=== PATIENT | female | born 1960 | race Asian ===

== ENCOUNTER 2019-05-19 12:50 | Emergency (ER) | payer MEDICAID, SELFPAY ==
[2019-05-19 12:58] VITALS: BP 149/85; PULSE 80; RESP 22; TEMP 36.4; O2SAT 97
[2019-05-19 13:42] LABS: Basophils Percent Auto 0.5 % (0.2-1.2); Eosinophils Absolute Auto 0.1 K/mm3 (0-0.3); Eosinophils Percent Auto 1.1 % (0-4.4); Hematocrit 40.5 % (37.0-47.0); Hemoglobin 13.2 g/dL (12.0-15.0); Immature Granulocyte Absolute 0.02 K/mm3 (0.00-0.031); Immature Granulocyte Percent A 0.3 % (0-0.5); Lymphocytes Absolute Auto 2.02 K/mm3 (0.9-3.2); Lymphocytes Percent Auto 31.5 % (18.3-44.2); Mean Corpuscular HGB Conc 32.6 g/dl (32-36); Mean Corpuscular Hemoglobin 28.3 pg (26-34); Mean Corpuscular Volume 86.9 fl (80-100); Mean Platelet Volume 9.4 fl (7.4-10.4); Monocytes Absolute Auto 0.5 K/mm3 (0.1-0.6); Neutrophils Absolute Auto 3.8 K/mm3 (1.3-6.7); Neutrophils Percent Auto 58.6 % (45.5-73.1); Platelet Count Result 226 k/mm3 (150-375); Red Blood Count 4.66 M/mm3 (4.2-5.4); Red Cell Distribution Width 13.8 % (11.5-14.5); White Blood Count 6.4 K/mm3 (4.5-10.0)
--- NOTE | 2019-05-19 13:43 | ED.NAVMDI ---
HPI - Nausea/Vomiting/Diarrhea General Chief complaint: Nausea/Vomiting/Diarrhea Stated complaint: N/V; dizziness Time Seen by Provider: 05/19/19 13:01 Source: weight calculator Mode of arrival: ambulatory Limitations: no limitations History of Present Illness HPI Narrative: A 58 y/o female pt presents to the ED, with c/o N/V and dizziness that began at 10AM this morning (3 hours ago). Scrap Drop Operator at bedside states pt is having dizziness/spinning sensation and N/V when lying supine. He states that the pt had a similar episode to this x 1 year ago. Per boat detailer, pt denies SANDY, tinnitus, or fever. Pt states that she now feels ok when lying supine, but upon sitting up she feels dizzy and nauseous. Scrap Drop Operator also notes pt having pain behind her ears bilaterally last night. MD elicited complaint: nausea and vomiting Onset (ago): hour(s) (3) Associated nausea: Yes Exacerbating factors: other (lying supine) Context: other (similar episode x 1 year ago) Associated symptoms: other (Dizziness/spinning sensation) Related Data Allergies Allergy/AdvReac Type Severity Reaction Status Date / Time No Known Allergies Allergy Unverified 11/04/17 13:42 Review of Systems Review of Systems: All systems reviewed & are unremarkable except as noted in HPI and below Constitutional: Constitutional: Denies fever(s) and Denies headache(s) ENT: Denies tinnitus and Reports other (pain behind ears bilaterally) Gastrointestinal: Gastrointestinal: Reports nausea and Reports vomiting Neurologic: Reports dizziness (spinning sensation) PMFSH Past Medical History Medical History (Updated 05/19/19 @ 16:00 by Mirza Reddy MD) Medical history unknown Surgical History Surgical History (Updated 05/19/19 @ 14:01 by Hailey [facility]) Surgical history unknown Social History Social History (Updated 05/19/19 @ 14:01 by Hailey Anage[facility]Valent[facility]) Smoking status: Never smoker Exam Const: General: healthy appearing, no acute distress and well developed Nutritional Appearance: well nourished Orientation/consciousness: patient oriented x3 (alert) and Other orientation findings (Alert) Limitations: no limitations HENMT: Head: normocephalic and atraumatic Ears: external ears normal General nose exam: No nasal discharge present and no epistaxis Face and sinus: face symmetric Mouth: Yes lip normal, Yes tongue normal and Yes moist mucous membranes Throat: other (No exudate, no erythema) Eyes: Conjunctivae: conjunctivae normal Sclera: sclerae normal Pupils: Equal, round and reactive pupils present EOM: EOMs intact bilaterally Neck: Neck: full ROM, no lymphadenopathy and supple Thyroid: thyroid normal Chest: Chest palpation & inspection: no tenderness Resp: Effort & Inspection: normal respiratory effort Auscultation: clear to auscultation bilaterally, no rales, no rhonchi, no wheezes and other (breath sounds equal) Cardio: Rate: regular rate Rhythm: regular rhythm Heart sounds: no gallops and no murmurs GI: Inspection: non-distended GI Palp: No abdominal tenderness and Yes Soft to palpation Auscultation: other (bowel sounds present) : General: Yes no CVA tenderness Back/Spine/Pelvis: Back: no CVA tenderness Thoracic/Lumbar Spine: thoracic and lumbar spine normal to inspection Skin: General skin exam: normal color and no rashes or lesions noted Neuro: General: patient oriented x3 (alert), moves all extremities and no focal motor deficits Cranial nerves: Yes Nystagmus not present and Yes facial symmetry Speech: normal speech Motor exam (neuro): Motor abnormalities not present Other: No inducible nystagmus with head tilt No vertigo with head tilt Extrem: General: normal to inspection, full ROM and no pedal edema Psych: Affect: normal affect Course Course Emergency Course: sx much better after meds Vital Signs Vital signs: Vital Signs Temperature 36.4 C L 05/19/19 12:58 Pulse Rate 80 05/19/19 12:58 Respiratory Rate
[2019-05-19 13:56] LABS: Alanine Aminotransferase 85 U/L (4-35); Albumin Level 4.6 g/dL (3.5-5.1); Alkaline Phosphatase 72 U/L (38-126); Aspartate Amino Transferase 67 U/L (14-36); Bilirubin,Total 0.4 mg/dL (0.2-1.3); Blood Urea Nitrogen 16 mg/dL (7-17); Calcium 9.2 mg/dL (8.4-10.2); Carbon Dioxide 24 mmol/L (22-30); Chloride 105 mmol/L (98-107); Estimated Glomerular Filt Rate > 60; Glucose 117 mg/dL (65-105); Lipase 86 U/L (23-300); Potassium 3.8 mmol/L (3.4-5.0); Sodium 137 mmol/L (137-145)
[2019-05-19] MEDS: LACTATED RINGERS 1,000 ML 250 ML IV CONT (14:28)
[2019-05-19] MEDS: PROCHLORPERAZINE EDISYLATE 10 MG/2 ML VIAL IV PUSH (14:28)
[2019-05-19] MEDS: MECLIZINE HCL 25 MG TABLET PO (14:28)
[2019-05-19 14:32] LABS: Add Urine Microscopic? YES; Appearance Urine Cloudy (Clear); Bilirubin Urine Negative (Negative); Blood Urine Negative (Negative); Color Urine Yellow (Yellow); Glucose Urine UA Negative (Negative); Ketones Urine Trace mg/dL (Negative); Leukocyte Esterase Ur Negative LEU/UL (Negative); Mucus Urine Heavy /lpf; Nitrate Urine Negative (Negative); Protein Urine 1+ mg/dL (Negative); Specific Grav Ur 1.023 (1.001-1.035); Squamous Epithelial Cell Urine Occasional /hpf (Few); Urobilinogen Urine Negative mg/dL (<2.0)
[2019-05-19 15:27] VITALS: BP 115/72; BP 137/85; PULSE 76; PULSE 78
[2019-05-19 15:29] VITALS: BP 131/82; PULSE 75
[2019-05-19 16:23] VITALS: BP 112/70; PULSE 80; RESP 20; TEMP 36.7; O2SAT 99
== END 2019-05-19 16:25 | disposition home or self-care (01) ==
PROVIDERS: Emergency Provider Emergency Medicine
DX: R42 Dizziness and giddiness (principal)
CPT/HCPCS: 36415; 80053; 81001; 83690; 85025; 96361; 96374; 99284; A9270; J0780; J7120

== ENCOUNTER 2023-08-15 11:31 | Outpatient (CLI) | payer BC, SELFPAY ==
[2023-08-15 13:31] LABS: Alanine Aminotransferase 18 U/L (6-35); Albumin Level 4.7 g/dL (3.5-5.1); Alkaline Phosphatase 63 U/L (38-126); Anion Gap 5 mmol/L (4-12); Aspartate Amino Transferase 55 U/L (14-36); Bilirubin,Total 0.6 mg/dL (0.2-1.3); Blood Urea Nitrogen 16 mg/dL (7-17); Calcium 9.4 mg/dL (8.4-10.2); Carbon Dioxide 28 mmol/L (22-30); Chloride 109 mmol/L (98-107); Cholesterol 180 mg/dL (0-200); Estimated Glomerular Filt Rate > 60; Glucose 99 mg/dL (65-110); HDL Direct 57 mg/dL; Potassium 4.2 mmol/L (3.4-5.0); Sodium 142 mmol/L (137-145); Triglycerides 107 mg/dL (<150)
[2023-08-15 13:42] LABS: LDL Cholesterol Direct 97 mg/dL
[2023-08-15 13:50] LABS: Hemoglobin A1C 5.7 % (<5.7)
== END 2023-08-15 11:32 | disposition home or self-care (01) ==
LOC: ANHGOSHLAB 11:33
PROVIDERS: PCP Emergency Medicine; Visit Provider Emergency Medicine
DX: R74.8 Abnormal levels of other serum enzymes (principal); E78.5 Hyperlipidemia, unspecified; R73.01 Impaired fasting glucose
CPT/HCPCS: 36415; 80053; 80061; 83036; 84443

== ENCOUNTER 2023-08-30 15:34 | Emergency (ER) | payer BC, SELFPAY ==
[2023-08-30] VITALS (11 sets, daily range): BP systolic 124–147; BP diastolic 71–90; PULSE 63–105; RESP 13–19; TEMP 36.2; O2SAT 95–99
--- NOTE | ~2023-08-30 | XR_ITS ---
EXAMINATION: XR chest 1V portable DATE: 08/30/2023 17:56 INDICATION: Dizziness TECHNIQUE: frontal view of the chest was obtained. COMPARISON: None FINDINGS: Mild linear discoid atelectasis at the lateral left lower lung zone. No other airspace opacities, pul monary edema, pleural effusion or pneumothorax. Heart size is normal. IMPRESSION: 1. Mild discoid atelectasis at the left lower lung zone. Reviewed, dictated and finalized at location A.
--- NOTE | 2023-08-30 17:25 | ECG_ITS ---
Test Date: 2023-08-30 17:35:04 Measurements Intervals [place] Rate: 65 P: 9 [place]: 189 QRS: 60 QRSD: 84 T: 37 QT: 433 QTc: 453 Interpretive Statements SINUS RHYTHM POSSIBLE RIGHT VENTRICULAR CONDUCTION DELAY [RSR (QR) IN V1/V2] POSSIBLE ANTERIOR MYOCARDIAL INFARCTION , OF INDETERMINATE AGE [30 ms Q WAVE IN V3/V4, OR R < 0.2 mV IN V4] ABNORMAL ECG No previous ECG available for comparison Electronically Signed On 08-31-2023 15:07:14 CDT by Russ Martins M.D.
--- NOTE | 2023-08-30 17:28 | ED.DIZZY ---
HPI - Dizziness General Chief Complaint: Dizziness Stated Complaint: vomiting, dizzy Time Seen by Provider: 08/30/23 17:07 History of Present Illness HPI Narrative: 63-year-old Gabonese speaking female presents with her [id number] bedside for dizziness, nausea and vomiting that started this morning. Patient's daughter and a translates and a cysto history. Offered a core measures abstractor, however patient and family declined. States the patient had rice and Gabonese squash for breakfast and then went to [employer]. While at [employer] she became dizzy and weak and when she got home she vomited. States she has had about 3-4 episodes of vomiting since the onset of symptoms at 9:00 a.m.. She states her symptoms are improved when she lays flat and is still and worse when she quickly knows her head, sits up and walks. She reports a history of a similar episode a few years ago and was prescribed a medication that helps. She denies chest pain or shortness of breath, headache, vision changes, focal numbness or weakness, abdominal pain, fever. She is reporting some intermittent dysuria for the past few days. Denies flank pain or hematuria. Related Data Home Medications Medication Instructions Recorded Confirmed fenofibrate nanocrystallized 145 145 mg PO DAILY 08/15/23 08/15/23 mg tablet Allergies Allergy/AdvReac Type Severity Reaction Status Date / Time No Known Allergies Allergy Verified 08/15/23 10:30 Review of Systems Review of Systems: CONSTITUTIONAL: Denies fever, chills, or sweats. EYES: Denies visual changes, redness, or discharge. ENT: Denies rhinorrhea, congestion, sore throat, or otalgia. CARDIOVASCULAR: Denies chest pain, palpitations, or edema. RESPIRATORY: Denies cough or dyspnea. GASTROINTESTINAL: Denies abdominal pain, nausea, vomiting, or diarrhea. GENITOURINARY: Denies dysuria or hematuria. SKIN: Denies rash or itching. MUSCULOSKELETAL: Denies back pain, joint pain, or myalgia. NEUROLOGIC: See HPI PSYCHIATRIC: Denies anxiety or depression. [facility] Past Medical History Medical History Medical history unknown Surgical History Surgical History Surgical history unknown Social History Social History Smoking status: Never smoker Exam Narrative: GENERAL: Well-appearing, well-nourished, and in no acute distress. HEAD: Normocephalic, atraumatic. EYES: PERRLA and EOMI. No nystagmus ENT: Nares clear, no rhinorrhea or epistaxis. Mucous membranes moist. Bilateral TMs are guerrero nonbulging with normal canals. NECK: Supple. CHEST: Clear to auscultation. No respiratory distress. HEART: Regular rate and rhythm. No murmur heard. Normal peripheral pulses. ABDOMEN: Soft, nontender, nondistended, normal active bowel sounds. No CVA tenderness. EXTREMITIES: Normal range of motion. No edema. SKIN: Warm, dry, no rash. NEURO: No focal deficits. Alert and oriented x3. Cranial nerves 2-12 intact. Strength 5/5 in BUE and BLE. Sensation intact throughout. Normal [id number] bilaterally. No pronator drift. Course Vital Signs Vital signs: Vital Signs Temperature 97.2 F L 08/30/23 15:44 Pulse Rate 73 08/30/23 15:44 Respiratory Rate 18 08/30/23 15:44 Blood Pressure 141/75 H 08/30/23 15:44 Pulse Oximetry 97 08/30/23 15:44 Oxygen Delivery Room Air 08/30/23 15:44 Temperature 97.2 F L 08/30/23 15:44 Pulse Rate 63 08/30/23 23:06 Respiratory Rate 14 08/30/23 23:06 Blood Pressure 146/73 H 08/30/23 23:06 Pulse Oximetry 98 08/30/23 23:06 Oxygen Delivery Room Air 08/30/23 15:44 MDM - Dizziness MDM Narrative Medical decision making narrative: 63-year-old female with history of vertigo presents to the emergency department for dizziness, nausea and vomiting that started this morning. Worse with mo
[2023-08-30] MEDS: SODIUM CHLORIDE 0.9% IV 1,000 ML 999 ML IV CONT (17:45)
[2023-08-30] MEDS: ONDANSETRON INJ 4 MG/2 ML VIAL IV PUSH (17:47)
[2023-08-30] MEDS: MECLIZINE HCL 25 MG TABLET PO ×2 (17:48→22:06)
[2023-08-30 17:56] LABS: Basophils Percent Auto 0.2 % (0.2-1.2); Eosinophils Percent Auto 0.1 % (0-4.4); Hematocrit 37.6 % (37.0-47.0); Hemoglobin 12.6 g/dL (12.0-15.0); Immature Granulocyte Absolute 0.03 K/mm3 (0.00-0.031); Immature Granulocyte Percent A 0.4 % (0-0.5); Lymphocytes Absolute Auto 1.11 K/mm3 (0.9-3.2); Lymphocytes Percent Auto 13.1 % (18.3-44.2); Mean Corpuscular HGB Conc 33.5 g/dl (32-36); Mean Corpuscular Hemoglobin 29.4 pg (26-34); Mean Corpuscular Volume 87.9 fl (80-100); Mean Platelet Volume 8.8 fl (7.4-10.4); Monocytes Absolute Auto 0.2 K/mm3 (0.1-0.6); Monocytes Percent Auto 2.4 % (2.6-8.5); Neutrophils Absolute Auto 7.1 K/mm3 (1.3-6.7); Neutrophils Percent Auto 83.8 % (45.5-73.1); Platelet Count Result 273 k/mm3 (150-375); Red Blood Count 4.28 M/mm3 (4.2-5.4); Red Cell Distribution Width 12.8 % (11.5-14.5); White Blood Count 8.5 K/mm3 (4.5-10.0)
[2023-08-30 18:07] LABS: Alanine Aminotransferase 25 U/L (6-35); Albumin Level 4.7 g/dL (3.5-5.1); Alkaline Phosphatase 84 U/L (38-126); Anion Gap 9 mmol/L (4-12); Aspartate Amino Transferase 26 U/L (14-36); Bilirubin,Total 0.6 mg/dL (0.2-1.3); Blood Urea Nitrogen 11 mg/dL (7-17); Calcium 9.4 mg/dL (8.4-10.2); Carbon Dioxide 25 mmol/L (22-30); Chloride 108 mmol/L (98-107); Estimated CRCL calculation 75 ml/min; Estimated Glomerular Filt Rate > 60; Glucose 112 mg/dL (65-110); Potassium 3.8 mmol/L (3.4-5.0); Sodium 142 mmol/L (137-145)
[2023-08-30 18:19] LABS: Troponin I < 0.012 ng/mL (0.000-0.034)
[2023-08-30 19:01] LABS: Appearance Urine Clear (Clear); Bilirubin Urine Negative (Negative); Blood Urine Negative (Negative); Color Urine Yellow (Yellow); Glucose Urine UA Negative (Negative); Ketones Urine Trace mg/dL (Negative); Leukocyte Esterase Ur Negative LEU/UL (Negative); Nitrate Urine Negative (Negative); Protein Urine Negative (Negative); Specific Grav Ur 1.011 (1.001-1.035); Urobilinogen Urine 0.2 mg/dL (<2.0); pH Urine 7.5 (5.0-9.0)
[2023-08-30 19:07] LABS: Add Urine Microscopic? NO
[2023-08-30] MEDS: SCOPOLAMINE 1 MG PATCH 1 PATCH TRANSDERM (20:07)
[2023-08-30] MEDS: diazePAM INJ (*CRX) 10 MG/2 ML SYRINGE 5 MG IV PUSH (20:07)
[2023-08-30] MEDS: PROCHLORPERAZINE EDISYLATE 10 MG/2 ML VIAL IV PUSH (22:06)
[2023-08-31 00:20] VITALS: BP 135/73; PULSE 71; RESP 14; O2SAT 100
== END 2023-08-31 00:22 | disposition home or self-care (01) ==
PROVIDERS: Emergency Provider Physician Assistant; PCP Emergency Medicine
DX: H81.10 Benign paroxysmal vertigo, unspecified ear (principal); R94.31 Abnormal electrocardiogram [ECG] [EKG]
CPT/HCPCS: 36415; 71045; 80053; 81003; 84484; 85025; 93005; 96361; 96374; 96375; 99284; A9270; J0780; J2405; J3360; J7030

== ENCOUNTER 2025-01-29 17:16 | Emergency (ER) | payer OTHER, MEDICARE, SELFPAY ==
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
--- NOTE | 2025-01-29 17:22 | ECG_ITS ---
Test Date: 2025-01-29 17:32:35 Measurements Intervals [place] Rate: 88 P: 52 [place]: 174 QRS: -10 QRSD: 74 T: 18 QT: 348 QTc: 423 Interpretive Statements SINUS RHYTHM POSSIBLE RIGHT VENTRICULAR CONDUCTION DELAY ANTERIOR MYOCARDIAL INFARCTION , PROBABLY OLD PROBABLE INFERIOR MYOCARDIAL INFARCTION , PROBABLY OLD Electronically Signed On 01-29-2025 21:42:30 ADVERTISING AGENT by Felipe Wheeler D.O
[2025-01-29 17:29] VITALS: BP 127/76; PULSE 91; RESP 18; TEMP 36.8; O2SAT 97
[2025-01-29 17:49] LABS: Hematocrit 39.5 % (37.0-47.0); Hemoglobin 13.2 g/dL (12.0-15.0); Immature Granulocyte Percent A 0.2 % (0-0.5); Lymphocytes Absolute Auto 2.78 K/mm3 (0.9-3.2); Mean Corpuscular HGB Conc 33.4 g/dl (32-36); Mean Corpuscular Hemoglobin 29.5 pg (26-34); Mean Corpuscular Volume 88.4 fl (80-100); Nucleated Red Blood Cells Absolute Auto 0.000 K/mm3 (0.0-0.012); Nucleated Red Blood Cells Perc 0.0 % (0.0-0.2); Platelet Count Result 301 k/mm3 (150-375); Red Blood Count 4.47 M/mm3 (4.2-5.4); White Blood Count 8.9 K/mm3 (4.5-10.0)
[2025-01-29 17:56] LABS: Alanine Aminotransferase 28 U/L (6-35); Albumin Level 4.4 g/dL (3.5-5.1); Alkaline Phosphatase 78 U/L (38-126); Anion Gap 9 mmol/L (4-12); Aspartate Amino Transferase 26 U/L (14-36); Bilirubin,Total 0.3 mg/dL (0.2-1.3); Blood Urea Nitrogen 9 mg/dL (7-17); Calcium 9.3 mg/dL (8.4-10.2); Carbon Dioxide 25 mmol/L (22-30); Chloride 103 mmol/L (98-107); Estimated CRCL calculation 81 ml/min; Estimated Glomerular Filt Rate > 60; Glucose 115 mg/dL (65-110); Lipase 83 U/L (23-300); Potassium 3.9 mmol/L (3.4-5.0); Sodium 137 mmol/L (137-145); Total Protein 7.7 g/dL (6.3-8.2)
[2025-01-29 18:08] LABS: Troponin I < 0.012 ng/mL (0.000-0.034)
[2025-01-29 18:09] LABS: INR 0.8; Prothrombin Time 11.6 Seconds (11.1-14.7)
[2025-01-29 18:10] LABS: Partial Thromboplastin Time 27.2 Seconds (22.3-36.8)
--- NOTE | 2025-01-29 20:04 | ECG_ITS ---
Test Date: 2025-01-29 20:48:33 Measurements Intervals [place] Rate: 78 P: 54 [place]: 189 QRS: -1 QRSD: 72 T: 24 QT: 376 QTc: 428 Interpretive Statements SINUS RHYTHM LOW QRS VOLTAGE IN PRECORDIAL LEADS POSSIBLE ANTERIOR MYOCARDIAL INFARCTION , PROBABLY OLD Electronically Signed On 01-29-2025 21:43:58 STRAIGHT TRUCK DRIVER by Felipe Wheeler D.O
[2025-01-29 20:08] VITALS: BP 126/81; PULSE 81; RESP 20; O2SAT 97
[2025-01-29] MEDS: CYCLOBENZAPRINE HCL 10 MG TABLET PO (20:21)
[2025-01-29] MEDS: ASPIRIN 81 MG CHEWABLE TABLET 324 MG PO (20:21)
[2025-01-29] MEDS: IBUPROFEN 600 MG TABLET PO (20:22)
--- NOTE | 2025-01-29 20:26 | PC.NURSE ---
Pt. to CT.
[2025-01-29 20:40] LABS: Troponin I < 0.012 ng/mL (0.000-0.034)
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
--- NOTE | 2025-01-29 20:53 | PC.NURSE ---
Pt. has no bruising, no areas of altered skin integrity. No wounds appreciated upon inspection at this time.
[2025-01-29 20:54] VITALS: BP 135/86; PULSE 82; RESP 16; TEMP 36.6; O2SAT 97
--- OUTSIDE RECORDS SUMMARY | 2025-01-30 00:46 | XMS_ITS | Clinical Summary ---
Author Organization [facility] Address [address] [place] [address] Care Team Providers Care Bore Miner Operator Name Role Phone Louise Gore MD Primary Care Provider [phone] Allergies No known active allergies Medications vitamin D3 (CHOLECALCIFEROL) 1.25 mg capsuleIndications :Vitamin D deficiency Take 1 capsule (50,000 Units total) by mouth once a week. 12 capsule 3 5 Active omeprazole (PRILOSEC) 40 MG capsuleIndications :Gastroesophageal reflux disease without esophagitis Take 1 capsule (40 mg total) by mouth daily as needed. 90 capsule 1 5 Active atorvastatin (LIPITOR) 10 MG tabletIndications: Mixed hyperlipidemia Take 1 tablet (10 mg total) by mouth nightly at bedtime. 90 tablet 1 5 Active hydrOXYzine (ATARAX) 25 MG tabletIndications: Primary insomnia Take 0.5 tablets (12.5 mg total) by mouth nightly as needed for Anxiety (and sleep). 45 tablet 1 5 Active metFORMIN (GLUCOPHAGE) 500 MG tabletIndications: Prediabetes Take 1 tablet (500 mg total) by mouth daily with breakfast. 90 tablet 1 5 Active olopatadine (PATANOL) 0.1 % ophthalmic solutionIndication s:Allergic conjunctivitis of both eyes Place 1 drop into both eyes 2 (two) times daily. 5 mL 3 5 Active Na sulfate-K sulfate-Mg sulfate (SUPREP BOWEL PREP) 17.5-3.13-1.6 GM/177ML SolutionIndication s:Screening for colon cancer Take 177 mLs by mouth every 12 (twelve) hours. Pour ONE (1) 6-ounce bottle of SUPREP liquid into the mixing container. Add cool drinking water to the 16-ounce line on the container and mix. Have the patient Drink: ALL the liquid in the container, then drink two (2) more 16-ounce containers of water over the next 1 hour. 354 mL Active Active Problems Problem Noted Date Diagnosed Date Mixed hyperlipidemia 07/24/2024 Primary insomnia 07/24/2024 Other chest pain 02/27/2024 Postmenopausal 02/27/2024 Cervical radiculopathy 02/27/2024 Resolved Problems Problem Noted Date Diagnosed Date Resolved Date Encounter for screening colonoscopy 10/30/2024 11/04/2024 Encounter for screening colonoscopy 10/30/2024 11/25/2024 Encounter for screening colonoscopy 10/30/2024 01/06/2025 Encounters Date Type Department Care Team Description 10/30/2024 Orders Only [facility] - [address], [address] [place] [address] Taye Conklin MD 10/30/2024 Orders Only [facility] - [facility] [address] [facility] [place] [address] Taye Conklin MD from Last 3 Months Immunizations Immunization Administration Dates Next Due Influenza (Generic) 01/11/2024,12/09/2020 Influenza Adult (Generic) 01/04/2018 Pneumococcal (Prevnar 20) 07/24/2024 Tdap (Generic) 12/09/2020 Social History Tobacco Use Types Packs/Day Years Used Date Smoking Tobacco: Never Smokeless Tobacco: Never Tobacco Cessation:Counseling Given: Yes Comments:Counseled by Dr. Gore. AUDIT-C Answer Date Recorded Q1: How often do you have a drink containing alcohol? Never 02/27/2024 Q2: How many drinks containi ng alcohol do you have on a typical day when you are drinking? Patient does not drink Q3: How often do you have si x or more drinks on one occasion? Never 02/27/2024 PHQ-2 Answer Date Recorded Patient Health Questionnaire-2 Score 0 04/24/2024 Comments No Sex and Gender Information Value Date Recorded Sex Assigned at Female 03/26/2024 8:33 AM MANAGER PRIMARY Legal Sex Female 1:23 PM CDT Gender Identity Not on file Sexual Orientation Not on file Last Filed Vital Signs Vital Sign Reading Time Taken Comments Blood Pressure 125/79 10/29/2024 9:48 AM CDT Pulse 96 10/29/2024 9:48 AM CDT Temperature 35.9 C (96.7 F) 10/29/2024 9:48 AM CDT Respiratory Rate 16 10/29/2024 9:48 AM CDT Oxygen Saturation 80% 10/29/2024 9:48 AM CDT Inhaled Oxygen Concentration - - Weight 52.2 kg (115 lb) 10/29/2024 9:48 AM CDT Height 162.6 cm (5' 4) 10/29/2024 9:48 AM CDT Body Mass Index 19.74 10/29/2024 9:48 AM CDT Plan of Treatment Upcoming Encounters Date Type Department Care Team (Latest Contact Info) Description 03/14/2025 8:29 AM MANAGER PRIMARY Hospital Encounter [facility] [address] [place] [address] Taye Conklin MD [address] [address] 03/14/2025 8:29 AM MANAGER PRIMARY - 03/14/2025 8:58 AM MANAGER PRIMARY Surgery [facility] [address] [place] [address] Taye Conklin MD [address] [address] COLONOSCOPY SCREENING 04/30/2025 9:40 AM MANAGER PRIMARY Office Visit [facility] - [address] [address] [address] [place] [address] Louise Gore MD [address] [place] [address] [address] [place] [address] Scheduled Procedures Name Priority Associated Diagnoses Date/Ti me COLONOSCOPY SCREENING Encounter for screening colonoscopy 03/14/2025 8:29 AM MANAGER PRIMARY Health Maintenance Due Date Last Done Comments Colorectal Cancer Screening Colonoscopy (10 Years) 1959 Mammogram Screening 1999 Zoster Vaccines (1 of 2) 07/19/2009 Dexa Scan (General) 07/19/2024 COVID-19 Vaccine (4 - 2024-2 6 season) 2024 02/14/2021, 06/15/2020, 05/22/2020 Influenza Adult (#1) 2024 01/11/2024, 12/09/2020, 01/04/2018 DTaP, Tdap and Td Vaccines ( 2 - Td or Tdap) 12/09/2030 12/09/2020 RSV Immunization or 60+ Years (1 - 1-dose 75+ series) 07/19/2034 Hepatitis C Completed 02/27/2024 PHQ-2 (Physician [place]) Completed 04/24/2024 Pneumococcal Vaccine: 50+ Years Completed 07/24/2024 Hepatitis A Vaccines Aged Out No long er eligible based on patient's age to complete this topic Meningococcal B Vaccine Aged Out No l onger eligible based on patient's age to complete this topic Meningococcal Vaccine Aged Out No swetha mainor eligible based on patient's age to complete this topic RSV Immunizations Under 20 Months Aged Out No longer eligible b ased on patient's age to complete this topic Procedures Procedure Name Priority Date/Time Associated Diagnosis Comments HEPATITIS C ANTIBODY Routine 02/27/2024 2:33 PM MANAGER PRIMARY Annual physical exam Establishing care with new doctor, encounter for General medical exam from Last 3 Months or Most Recently Relevant to Health Maintenance Results * HEPATITIS C ANTIBODY (02/27/2024 2:33 PM MANAGER PRIMARY) HEPATITIS C AB NON-REACTI VE NON-REACT JAXON 02/27/2024 9:57 PM MANAGER PRIMARY [facility] Comment: ANTIBODIES TO HCV NOT DETECTED. DOES NOT EXCLUDE THE POSSIBILITY OF EXPOSURE TO HCV. 02/27/2024 2:33 PM MANAGER PRIMARY Louise Gore MD LABORATORY Final Result [facility] [address] [place] [address], [place] [phone] [id number] from Last 3 Months or Most Recently Relevant to Health Maintenance Insurance MEDIC[place] [address] [place] [id number] Care Teams Bore Miner Operator Relationship Specialty Start Date End Date Louise Gore MD [address] [address] PCP - General INTERNAL MEDICINE 12/26/23
--- OUTSIDE RECORDS SUMMARY | 2025-01-30 00:46 | XMS_ITS | Encounter Summary ---
Author Organization [facility] Address [address] [place] [address] Phone Care Team Providers Care Truck Mechanic Apprentice Name Role Phone Bandar Daniel MD Primary Care Provider [phone] Encounter Details Date Type Department Care Team (Latest Contact Info) Description 01/24/2019 Orders Only [facility] Scanning, Provider Social History Tobacco Use Types Packs/Day Years Used Date Smoking Tobacco: Never Assessed Comments Unknown Sex and Gender Information Value Date Recorded Sex Assigned at Not on file Legal Sex 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 Gender Identity Not on file Sexual Orientation Not on file documented as of this encounter Plan of Treatment Not on file documented as of this encounter Procedures Procedure Name Priority Date/Time Associated Diagnosis Comments SCAN - RADIOLOGY/IMAGING 01/24/2019 documented in this encounter Results * SCAN - RADIOLOGY/IMAGING (01/24/2019) Anatomical Region Laterality Modality Other us Provider Scanning Final Result documented in this encounter Visit Diagnoses Not on filedocumented in this encounter Care Teams Truck Mechanic Apprentice Relationship Specialty Start Date End Date Bandar Daniel MD [address] [place] [address] PCP - General Geriatric Medicine 02/01/19 documented as of this encounter
--- OUTSIDE RECORDS SUMMARY | 2025-01-30 00:46 | XMS_ITS | Clinical Summary ---
Author Organization [facility] Address [address] [place] [address] Care Team Providers Care Appointment Specialist Name Role Phone Bandar Daniel MD Primary Care Provider [phone] Allergies No known active allergies Medications epinastine 0.05 % ophthalmic solution INT 1 GTT INTO OU BID 12/28/19 19 Active meloxicam (MOBIC) 15 mg tablet Take 15 mg by mouth daily Active loratadine 10 mg capsule Take by mouth Active meclizine (ANTIVERT) 25 mg tablet Take 25 mg by mouth 3 (three) times a day as needed for dizziness Active fenofibrate nanocrystallized (TRICOR) 145 mg tablet Take 145 mg by mouth daily Active Active Problems Problem Noted Date Diagnosed Date Multiple thyroid nodules 03/29/2019 Hypertriglyceridemia 03/29/2019 Social History Tobacco Use Types Packs/Day Years Used Date Smoking Tobacco: Never Smokeless Tobacco: Never Alcohol Use Standard Drinks/Week Comments Not Currently 0 (1 standard drink = 0.6 oz pur e alcohol) Personal Safety Answer Date Recorded Getting School Help Needed Not on file 05/26 Comments Unknown Sex and Gender Information Value Date Recorded Sex Assigned at Not on file 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 Gender Identity Not on file Sexual Orientation Not on file Last Filed Vital Signs Vital Sign Reading Time Taken Comments Blood Pressure 145/83 11/28/2019 12:55 PM CDT Pulse 91 11/28/2019 12:55 PM CDT Temperature 36.3 C (97.3 F) 11/28/2019 12:55 PM CDT Respiratory Rate - - Oxygen Saturation - - Inhaled Oxygen Concentration - - Weight 56.7 kg (125 lb) 11/28/2019 12:55 PM CDT Height 157.5 cm (5' 2) 11/28/2019 12:55 PM CDT Body Mass Index 22.86 11/28/2019 12:55 PM CDT Plan of Treatment Not on file Insurance [facility] Care Teams Appointment Specialist Relationship Specialty Start Date End Date Bandar Daniel MD [address] [place] [address] PCP - General Geriatric Medicine 02/01/19
== END 2025-01-29 21:05 | disposition home or self-care (01) ==
PROVIDERS: Emergency Provider Emergency Medicine; PCP Family Medicine
DX: S09.90XA Unspecified injury of head, initial encounter (principal); M54.2 Cervicalgia; R07.89 Other chest pain; V89.2XXA Person injured in unspecified motor-vehicle accident, traffic, initial encounter
CPT/HCPCS: 36415; 70450; 71046; 72125; 80053; 83690; 84484; 85025; 85610; 85730; 93005; 99284; A9270